=== PATIENT | female | born 1990 | race Caucasian/White ===

== ENCOUNTER 2017-12-21 16:07 | Emergency (ER) | payer MEDICAID ==
[~2017-12-21] VITALS: Ht 172.7 cm; Wt 100.2 kg
[2017-12-21 16:20] VITALS: BP 125/76
--- NOTE | 2017-12-21 18:28 | NUR ---
PT RETURNED FROM OB AND TAKEN TO BED 3
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
--- NOTE | 2017-12-21 19:18 | NUR ---
Transfer of care at this time. Report given to VALERIY Soto.
--- NOTE | 2017-12-21 19:19 | NUR ---
report received from Mary CROOKS
--- NOTE | 2017-12-21 20:20 | NUR ---
pt awaiting dc instructions.
[2017-12-21 20:31] VITALS: BP 121/68
--- NOTE | 2017-12-21 20:31 | NUR ---
Patient discharged with v/s stable. Written and verbal after care instructions given and explained. Patient alert, oriented and verbalized understanding of instructions. Ambulatory with steady gait. All questions addressed prior to discharge. ID band removed. Patient advised to follow up with PMD. Rx of ACULAR given. Patient educated on indication of medication including possible reaction and side effects. Opportunity to ask questions provided and answered.
== END 2017-12-21 20:31 | disposition home or self-care (01) ==
LOC: MED 16:07 → MLD 16:35 → UNDOADMOB 16:35 → UNDODISOB 18:20 → MED 20:31
DX: O26.892 Other specified pregnancy related conditions, second trimester (principal); H10.13 Acute atopic conjunctivitis, bilateral; Z3A.26 26 weeks gestation of pregnancy; Z88.8 Allergy status to other drugs, medicaments and biological substances; Z91.040 Latex allergy status
CPT/HCPCS: 76805; 99284; Q0092; 59025